=== PATIENT | male | born 1995 | race Caucasian/White ===

== ENCOUNTER 2020-12-30 10:53 | Emergency (ER) | payer BC, OTHER ==
[~2020-12-30] VITALS: Ht 180.3 cm; Wt 74.8 kg
[2020-12-30 11:19] VITALS: BP 126/88
== END 2020-12-30 12:25 | disposition home or self-care (01) ==
LOC: ER 10:56
DX: S82.61XA Displaced fracture of lateral malleolus of right fibula, initial encounter for closed fracture (principal); S82.391A Other fracture of lower end of right tibia, initial encounter for closed fracture; X50.9XXA Other and unspecified overexertion or strenuous movements or postures, initial encounter; Y93.66 Activity, soccer; Y92.322 Soccer field as the place of occurrence of the external cause; Y99.8 Other external cause status
CPT/HCPCS: 73590-TC; 73610-TC